=== PATIENT | female | born 2005 | race Caucasian/White ===

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

== ENCOUNTER 2025-01-23 10:39 | Outpatient (AMB) | payer OTHER, SELFPAY ==
--- NOTE | 2025-01-23 10:52 | A.OFFPC_ITS ---
Vital Signs 01/23/25 10:54 Height 5 ft 5 in Weight 131 lb BMI 21.8 BP 104/68 Blood Pressure Location Lt brachial Position Sitting Respiration 18 Pulse 71 Pulse Source Pulse Oximeter Temp 98.4 F Temp Source Oral Pulse Oximetry (%) 98 Oxygen Delivery Method Room Air Intake Visit Reasons: form and titer test Intake Note: Pt is here today for a follow up to have titers done for school. Allergies Penicillins Allergy (Intermediate, Verified 01/23/25 10:54) Rash Tobacco use date assessed: 01/23/25 Dental Screening Dental Screen Date: 09/25/24 HPI form and titer test HPI Details Patient presents for the follow-up after physical. She needs school form filled out and blood titers checked. Patient denies complaints [facility] Medical History Microscopic hematuria Annual physical exam Surgical History No pertinent past surgical history Family History Father No problems noted. 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, student in nursing Housing: House Patient Tobacco Use Status: Never used Tobacco e-Cigarette/Vaping Use: Never Used service: No Current occupational status: employed and student Cognitive needs: No Hearing needs: No Vision needs: Yes Questionnaire Thrive Questionnaire Date Thrive assessed: 09/25/24 I am a: Patient What is your living situation today?: I have a steady place to live Within the past 12 months, did the food you bought not last and you didn't have the money to get more?: Never true Within the past 12 months, did you worry whether your food would run out before you got money to buy more?: Never true Do you have trouble paying for medicines?: No Do you have trouble getting transportation to medical appointments?: No Do you have trouble paying your heating and electricity bill?: No Do you have trouble taking care of your child, family member or friend?: No Do you have trouble with day-to-day activities such as bathing, preparing meals, shopping, managing finances, etc.?: No Are you currently unemployed and looking for a job?: No Are you interested in more education?: No Please select the resources that you would like help with: None Currently or been in a relationship where the following occur: No concerns reported THRIVE Score: 0 Review of Systems Const All systems reviewed & are unremarkable except as noted in HPI and below Eyes Reports no additional complaints ENT Reports no additional complaints Card Reports no additional complaints Resp Reports no additional complaints GI Reports no additional complaints Physical exam (Primary Care) Vital Signs: Last Vital Signs Temp 98.4 F 01/23/25 10:54 Pulse 71 01/23/25 10:54 Resp 18 01/23/25 10:54 BP 104/68 01/23/25 10:54 Pulse Ox 98 01/23/25 10:54 Oxygen Delivery Method Room Air 01/23/25 10:54 BMI result Body Mass Index 21.8 Tobacco/Smoking Status: Tobacco use Status Tobacco use date assessed 01/23/25 01/23/25 10:55 Patient Tobacco Use Status Never used Tobacco 01/23/25 10:54 e-Cigarette/Vaping Use Never Used 01/23/25 10:54 Thrive Assessment: Date of Thrive Assessment Date Thrive assessed 09/25/24 01/23/25 10:54 Currently or been in a relationship where the following occur: No concerns reported Const General: no acute distress HENMT Head: Yes normal to inspection Resp Effort & Inspection: normal respiratory effort Auscultation: clear to auscultation bilaterally Cardio Rhythm: regular rhythm Heart sounds: S1 normal heart sound present and S2 normal heart sound present Coding Level of Care Code Est Pt Level 3 (12405) Diagnoses Annual physical exam Z00. Assessment & Plan Assessment & Plan (1) Annual physical exam: Code(s): Z00. - Encounter for general adult medical examination without abnormal findings Category: Medical Plan: Medical school form filled out patient will have titers for hepatitis-B and T spot checked Orders: Orders T Spot TB Today Z00. - Encounter for general adult medical examination without abnormal findings Hepatitis B Surface Antibody Today Z00.00 - Encounter for general adult medical examination without abnormal findings
[2025-01-23 10:54] VITALS: BP 104/68; PULSE 71; RESP 18; TEMP 36.9; O2SAT 98; BMI 21.8
--- OUTSIDE RECORDS SUMMARY | 2025-01-23 12:44 | XMS_ITS | Encounter Summary ---
Author Organization [facility] Address [address] [place] [address] Phone Care Team Providers Care Office Assistance Name Role Phone Monica Walker MD Primary Care Prov ider Encounter Details Date Type Department Care Team (Late st Contact Info) Description 06/09/2017 Conversion Encounter [facility] [address] [phone] Monica Morales MD [address] [address] Social History Tobacco Use Types Packs/Day Years [...] on filedocumented in this encounter Care Teams Office Assistance Relationship Specialty Start Date End Date Monica Walker MD [address] [address] PCP - General 11/25/16 10/01/24 documented as of this encounter
--- OUTSIDE RECORDS SUMMARY | 2025-01-23 12:44 | XMS_ITS | Clinical Summary ---
Author Organization [facility]' Address [address] [place] [id number] Phone Care Team Providers Care Delphi Programmer Name Role Phone Unavailable Primary Care Provider Unavailabl e Allergies Active Allergy Reactions Criticality Noted Date Comments Amoxicillin Rash Medium 06/05/2014 Environmental 10/04/2017 Cat, dog,horse, tree pollen. Dog at home. Food High 10/04/2017 Pecans, peanuts, nuts Tree Nuts (Food) 02/11/2021 Medications cetirizine 10 MG tablet Take 1 tablet by mouth nightly as needed for allergies. Active fluticasone (Flonase) 50 MCG/ACT nasal sprayIndications :Seasonal allergic rhinitis due to pollen Administer 2 sprays into each nostril daily as needed for rhinitis or allergies. 1 Units 3 1 Active Additional Information Patient not taking.Reported on 10/07/2021 EPINEPHrine 0.3 MG/0.3ML injection syringeIndicatio ns:Allergy to peanuts Inject 0.3 mL (0.3 mg total) into the muscle once as needed for anaphylaxis. Upon accidental nut ingestion 2 each 3 Active Additional Information Patient not taking.Reported on 10/27/2023 albuterol HFA 108 (90 Base) MCG/ACT inhalerIndicatio ns:Intermittent asthma, unspecified asthma severity, unspecified whether complicated Inhale 2 puffs every 4 (four) hours as needed for wheezing or shortness of breath. 2 Units 3 Active triamcinolone 0.025 % creamIndications :Flexural atopic dermatitis Mix 80g tube w/1lb Cerave cream jar and aaply the mix to skin bid 80 g Active Additional Information Patient not taking.Reported on 10/27/2023 Mometasone Furoate 220 MCG/ACT aerosol powderIndication s:Mild persistent asthma with acute exacerbation Inhale 1 Inhalation 2 (two) times a day. 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 Flexural atopic dermatitis 10/17/2023 Overview (10/17/2023): Elocon cream eRx. Human papilloma virus (HPV) vaccination declined by caregiver 10/07/2021 Assessment & Plan (10/14/2022 10:53 AM EDT): Mom requests Gardasil not to be given today, too. Personal history of COVID-19 04/09/2021 Assessment & Plan (10/14/2022 10:52 AM EDT): Full recovery Assessment & Plan (10/07/2021 8:46 PM EDT): Full recovery Allergy to amoxicillin 10/04/2017 Allergic rhinitis 10/04/2017 Food allergy 10/04/2017 Assessment & Plan (10/08/2018 9:23 PM EDT): Epipen refilled Mild persistent asthma with acute exacerbation 0 10/04/2017 Assessment & Plan (10/17/2023 12:41 PM EDT): Asmanex prophylaxis added Assessment & Plan (10/14/2022 1:12 PM EDT): Albuterol needed very occasionally, refilled per mom's request. Assessment & Plan (10/07/2021 9:30 AM EDT): Allmost never, sx w/sick w/colds Assessment & Plan (10/08/2019 12:35 PM EDT): No recent issues, albuterol not needed >2x/wk Assessment & Plan (10/08/2018 9:24 PM EDT): No recent issues Allergy to peanuts 09/30/2016 Assessment & Plan (10/14/2022 10:53 AM EDT): EPi-pen refilled. Assessment & Plan (10/07/2021 8:45 PM EDT): Needs Epi-Pen refill and med autrhorization Assessment & Plan (10/08/2018 9:23 PM EDT): Epipen refilled Urticaria due to cold 09/30/2016 Resolved Problems Problem Noted Date Diagnosed Date Resolved Date Acne vulgaris 10/07/2021 10/17/2023 Assessment & Plan (10/14/2022 10:55 AM EDT): Minimal, worsens prior to menses. CeraVe acne cleanser or Adalapan may be used OTC. Isolated proteinuria without specific morphologic lesion 10/08/2019 10/08/2020 Overview (10/08/2019): Will f/up 1st am sample Irregular menses 10/08/2018 10/08/2020 Assessment & Plan (10/08/2019 12:34 PM EDT): Getting more predictable Assessment & Plan (10/08/2018 9:25 PM EDT): < 2yrs post/menarche, denies SAC. HCG neg. Immunizations Immunization Administration Dates Next Due DTaP 03/20/2009, 7,2005, 006,2005 HPV Vaccine 9 Valent 10/07/2021(Deferred : Parental decision),10/08/2020(Deferred: Parental decision),10/08/2019(Deferred: Parental decision),10/05/2018(Deferred: Parental decision) Hep A, ped/adol 10/05/2018,10/04/2017 Hep B 2005 Hep B, ped/adol 2005,2005,2005 HiB 06/08/2006, 6,2005, 006 IPV 03/20/2009, 7,2005, 006 Influenza, injectable, trivalent 02/21/2006 MMR 03/20/2009,06/08/2006 Meningococcal Conj (Menactra) MCV4P 10/07/2021,0 09/30/2016 Pneumococcal Conjugate 02/21/2006,2005,2005, 006 Pneumococcal Conjugate 13-Valent 03/20/2010 Tdap 09/30/2016 Varicella 03/20/2009,02/21/2006 Family History Medical History Relation Name Comments Hypertension Father Asthma Maternal Grandmother Asthma Sister Relation Name Status Comments Father Maternal Grandmother Sister Social History Tobacco Use Types Packs/Day Years Used Date Smoking Tobacco: Never Smokeless Tobacco: Never Alcohol Use Standard Drinks/Week Comments No 0 (1 standard drink = 0.6 oz pur e alcohol) Hunger/Food Answer Date Recorded In the last 12 months, did y ou or your family ever eat less than you felt you should because there wasn't enough money for food? No 10/17/2023 Stable Housing Answer Date Recorded Are you worried that in the next 2 months you may not have stable housing? No 10/17/2023 Transportation Concerns Answer Date Rec orded In the last 12 months, have you or your family ever had to go without healthcare because you didn't have a way to get there? No 10/17/2023 Hazards in Home Answer Date Recorded Think about the place you li ve. Do you have problems with any of the following? Pests (mice or roaches), mold, no/not working smoke detectors, water leaks, no window guards. No 2023 Financing Utilities Answer Date Recorde d In the last 12 months, has t he electric, gas, oil, or water company threatened to shut off your services in your home? No 10/17/2023 Safety at Home Answer Date Recorded Are you or your family worried about feeling saf e in your home? No 10/17/2023 Outside Support Answer Date Recorded Do you feel that you need mo re support from other people or programs to help you care for yourself or your family? No 10/17/2023 Understanding Health Concerns Answer Da te Recorded Do you need help understandi ng your or your child's healthcare needs (diagnosis, medications, plan, etc.)? No 10/17/2023 Financing Health Concerns Answer Date R ecorded In the last 12 months, was t here a time when your child needed to see a doctor or get medications or supplies but could not because of cost? No 10/17/2023 Missing School or Work Answer Date Ankit rded Did you or your child miss s chool or work because of a health problem that could have been avoided? No 10/17/2023 Child Education Answer Date Recorded Do you have concerns about y our/your child's learning or behavior in school, preschool, or daycare? No 10/17/2023 Comments No Sex and Gender Information Value Date Recorded Sex Assigned at Female 03/07/2020 7:05 AM EST Legal Sex Female 12:17 PM EST Gender Identity Female 03/07/2020 7:05 AM EST Sexual Orientation Straight 10/08/2019 12 :37 PM EDT Last Filed Vital Signs Vital Sign Reading Time Taken Comments Blood Pressure 108/69 10/17/2023 9:09 AM EDT Pulse 84 10/17/2023 9:09 AM EDT Temperature 36.1 C (97 F) 10/27/2023 10:34 AM EDT Respiratory Rate - - Oxygen Saturation 99% 07/13/2016 12:00 AM EDT Inhaled Oxygen Concentration - - Weight 55.8 kg (123 lb) 10/27/2023 10:34 AM EDT Height 163.8 cm (5' 4.5 ) 10/17/2023 9:09 AM EDT Body Mass Index 20.79 10/17/2023 9:09 AM EDT Body Mass Index Percentile 41.14% 10/27/2023 10: 34 AM EDT Growth Chart: CDC (Girls, 2- 20 Years) Plan of Treatment Health Maintenance Due Date Last Done Comments HPV Vaccines (1 - 3-dose series) 02/19/2020 Men B Vaccine (1 of 2 - Standard) 2021 Influenza Vaccines (#1) 2024 02/21/2006 COVID-19 Vaccine (1 - 2024-2 6 season) 2024 DTaP,Tdap,and Td Vaccines (7 - Td or Tdap) 09/30/2026 09/30/2016, 03/20/2009, 06/08/2006, Additional history exists Hepatitis B Vaccines Completed 2005, 2005, 2005, Additional history exists HIB Vaccines Completed 06/08/2006, 08/09, 2005, Additional history exists IPV Vaccines Completed 03/20/2009, 05/13, 2005, Additional history exists MMR Vaccines Completed 03/20/2009, 06/08/2006 Varicella Vaccines Completed 03/20/2009, 02/21/2006 Pneumococcal Vaccine Completed 03/20/2010, 02/21/2006, 2005, Additional history exists Hepatitis A Vaccines Completed 10/05/2018, 10/05/19 18 Meningococcal Vaccine Completed 10/07/2021, 017 Procedures * Due to [place] ACTON law, this organization might not be sharing sensitive test results. Procedure Name Priority Date/Time Associated Diagnosis Comments CHLAMYDIA TRACHOMATIS, AMPLIFIED Routine 10/17/2023 Encounter for screening examination for sexually transmitted disease from Last 3 Months or Most Recently Relevant to Health Maintenance Results * Due to [place] ACTON law, this organization might not be sharing sensitive test results. * Chlamydia trachomatis, Amplified (10/17/2023) CHLAMYDIA, DNA PROBE NEGATIVE NEGATIVE [facility] Urine (Urine) 10/17/2023 10/17/2023 2:41 PM EDT Narrative [facility] - 10/18/2023 8:55 AM EDT - [address] [id number] us Monica Walker MD LAB MICROBIOLOGY - GENERAL ORDERABLES Final Result [facility] from Last 3 Months or Most Recently Relevant to Health Maintenance
--- OUTSIDE RECORDS SUMMARY | 2025-01-23 12:44 | XMS_ITS | Encounter Summary ---
Author Organization [facility] Address [address] [place] [phone] Phone Care Team Providers Care Bag Hanger Name Role Phone Monica Walker MD Primary Care Prov ider Reason for Visit * Reason Onset Date Comments Med Refill Med Refill 01/02/2019 Encounter Details Date Type Department Care Team (Late st Contact Info) Description 12/26/2018 Refill [facility] [address] [phone] Monica Walker MD [address] [place] [id number] Food allergy Social History Tobacco Use Types Packs/Day Years Used Date Smoking Tobacco: Never Smokeless Tobacco: Never Alcohol Use Standard Drinks/Week Comments No 0 (1 standard drink = 0.6 oz pur e alcohol) Comments Unknown Sex and Gender Information Value Date Recorded Sex Assigned at Female 03/07/2020 7:05 AM EST Legal Sex Female 12:17 PM EST Gender Identity Female 03/07/2020 7:05 AM EST Sexual Orientation Straight 10/08/2019 12 :37 PM EDT documented as of this encounter Miscellaneous Notes * Telephone Encounter - Arabella Sargent LPN - 12/27/2018 8:17 AM EDT I left additional v/m for parent regarding refill. * Telephone Encounter - Arabella Sargent LPN - 12/26/2018 2:26 PM EDT I left v/m for parent to confirm if refill is needed. documented in this encounter Plan of Treatment Not on file documented as of this encounter Visit Diagnoses Diagnosis Food allergy Dermatitis due to food taken internally documented in this encounter Care Teams Bag Hanger Relationship Specialty Start Date End Date Monica Walker MD [address] [place] [address] PCP - General 11/25/16 10/01/24 documented as of this encounter
== END 2025-01-23 13:21 | disposition home or self-care (01) ==
LOC: HO.HMCC 10:40
PROVIDERS: PCP Internal Medicine; Visit Provider Internal Medicine
DX: Z00.00 Encounter for general adult medical examination without abnormal findings (principal)

== ENCOUNTER 2025-01-23 10:39 | Outpatient (REF) | payer OTHER, SELFPAY ==
[2025-01-24 04:32] LABS: HBS Num1 0.75 mIU/mL (0-7.99); ~Hepatitis B Surface Antibody NONREACTIVE (Nonreactive)
[2025-01-25 22:18] LABS: TS Negative Control Passed; TS Panel A 1; TS Panel B 1; TS Positive Control Passed; TSpotTB Negative (Negative)
== END 2025-01-23 10:40 | disposition home or self-care (01) ==
LOC: HO.HMGCLDS 10:39
PROVIDERS: PCP Internal Medicine; Visit Provider Internal Medicine
DX: Z00.00 Encounter for general adult medical examination without abnormal findings (principal); Z11.1 Encounter for screening for respiratory tuberculosis
CPT/HCPCS: 36415; 86481; 86706